=== PATIENT | female | born 1995 | race Caucasian/White ===

== ENCOUNTER 2016-12-24 08:00 | Outpatient (CLI) | payer OTHER | END 2016-12-24 08:01 | disposition home or self-care (01) | DX: N92.6 Irregular menstruation, unspecified (principal) ==

== ENCOUNTER 2017-01-20 16:28 | Outpatient (CLI) | payer OTHER | END 2017-01-20 16:29 | disposition home or self-care (01) | DX: Z36 Encounter for antenatal screening of mother (principal) ==

== ENCOUNTER 2017-01-21 16:52 | Outpatient (CLI) | payer OTHER | END 2017-01-21 16:53 | disposition home or self-care (01) | DX: Z11.3 Encounter for screening for infections with a predominantly sexual mode of transmission (principal) ==

== ENCOUNTER 2017-01-24 07:22 | Outpatient (CLI) | payer OTHER | END 2017-01-24 07:23 | disposition home or self-care (01) | DX: Z36 Encounter for antenatal screening of mother (principal); O02.1 Missed abortion ==

== ENCOUNTER 2017-02-10 19:19 | Emergency (ER) | payer OTHER ==
[2017-02-10] MEDS ORDERED: HYDROcod/ACETAM 5/325 MG TABLET PO STA (20:27)
[2017-02-10] MEDS ORDERED: HYDROcod/ACETAM 5/325 MG TABLET ONE (20:35)
[2017-02-10] MEDS ORDERED: HYDROcod/ACET 5/325 Prepack 6 PO STA (23:30)
[2017-02-10] MEDS ORDERED: HYDROcod/ACET 5/325 Prepack 6 PO ONE (23:34)
== END 2017-02-10 23:48 | disposition home or self-care (01) ==
DX: O02.1 Missed abortion (principal)
CPT/HCPCS: 36415; 76830; 76856; 80053; 81001; 83690; 84702; 85025; 99283; A9270

== ENCOUNTER 2017-02-11 15:00 | Day surgery (SDC) | payer OTHER ==
[2017-02-11] MEDS ORDERED: SODIUM CHLORIDE 0.9% 1,000 ML IV ONE ×2 (15:32→16:13)
[2017-02-11] MEDS ORDERED: MORPHINE 2 MG/ML SYRINGE IVP STA ×2 (15:32→17:22)
[2017-02-11] MEDS ORDERED: MORPHINE 2 MG/ML SYRINGE ONE ×2 (16:11→17:24)
[2017-02-11] MEDS ORDERED: SODIUM CHLORIDE 0.9% 500 ML IV ONE (17:44)
[2017-02-11] MEDS ORDERED: LACTATED RINGERS 1,000 ML IV ONE (18:19)
[2017-02-11] MEDS ORDERED: PROPOFOL 200 MG/20 ML VIAL IVP ONE (18:42)
[2017-02-11] MEDS ORDERED: METOCLOPRAMIDE 10 MG/2 ML VIAL IVP ONE (18:42)
[2017-02-11] MEDS ORDERED: DEXAMETHASONE 4 MG/ML VIAL IVP ONE (18:42)
[2017-02-11] MEDS ORDERED: PHENYLEPHRINE 10 MG/ML VIAL IV ONE (18:42)
[2017-02-11] MEDS ORDERED: CARBOPROST TROMETHAMINE 250 MCG/ML AMP IM ONE (18:42)
[2017-02-11] MEDS ORDERED: LIDOCAINE-MPF 2% 5 ML VIAL IM ONE (18:42)
[2017-02-11] MEDS ORDERED: MIDAZOLAM 2 MG/2 ML VIAL IVP ONE (18:42)
[2017-02-11] MEDS ORDERED: KETOROLAC 30 MG/ML VIAL IVP ONE (18:42)
[2017-02-11] MEDS ORDERED: ceFAZolin 1 GM VIAL IV ONE (18:42)
[2017-02-11] MEDS ORDERED: fentaNYL 100 MCG/2 ML VIAL IVP ONE (18:42)
[2017-02-11] MEDS ORDERED: ACETAMINOPHEN 325 MG TABLET PO ONE (19:44)
[2017-02-11] MEDS ORDERED: ACETAMINOPHEN 1,000 MG/100 ML 100 ML IV ONE (19:45)
== END 2017-02-11 17:07 | disposition home or self-care (01) ==
PROC: 10D17ZZ Extraction of Products of Conception, Retained, Via Natural or Artificial Opening (ICD-10-PCS; principal; 2017-02-11 17:00)
DX: O02.1 Missed abortion (principal); E66.9 Obesity, unspecified; Z68.36 Body mass index [BMI] 36.0-36.9, adult
CPT/HCPCS: 36415; 59820; 85025; 86850; 86900; 86901; 88305; 96361; 96374; 96376; 99283; 99284; A9270; J0131; J7120

== ENCOUNTER 2017-04-20 22:51 | Emergency (ER) | payer OTHER ==
[2017-04-20 22:59] VITALS: BP 142/82
--- NOTE | 2017-04-20 23:53 | XRAY Preliminary Report ---
Exam: XR Ankle 3 View RT IMPRESSION: No evidence of fracture or dislocation. [facility] SITE ID: [id number]
--- NOTE | 2017-04-20 23:56 | XRAY Report ---
EXAM: RIGHT ANKLE RADIOGRAPHY EXAM DATE: 04/20/2017 11:29 PM. CLINICAL HISTORY: Injury/fell in [place] dog [place] tonight. COMPARISON: None. TECHNIQUE: 3 views. FINDINGS: Bones: No fracture or focal bony lesion. Joints: No evidence of dislocation. Soft Tissues: There is lateral ankle soft tissue swelling. IMPRESSION: No evidence of fracture or dislocation. [facility] Referring Provider Line: [phone] SITE ID: [id number]
--- NOTE | 2017-04-21 00:05 | ED Physician Documentation ---
PD HPI LOWER EXT INJURY - Stated complaint Stated Complaint: R ANKLE INJURY - Chief complaint Chief Complaint: Ext Problem - History obtained from History obtained from: Patient, Family - History of Present Illness PD HPI LOW EXT INJURY LOCATION: Right, Ankle Type of injury: Twist Where injury occurred: Home Timing - onset: How many hours ago (1) Timing - details: Abrupt onset Improved by: Rest, Ice, Immobilization Worsened by: Moving, Palpating Similar symptoms before: Has not had sx before Recently seen: Not recently seen - Additional information Additional information: Patient is a 21 year old female with no significant past medical history who is presenting to the emergency department for right ankle pain. patient states that she was at the [employer] and stepped in a hole twisting her right ankle. patient denies any other trauma at this time. Review of Systems Constitutional: denies: Fever, Chills Eyes: denies: Loss of vision Ears: denies: Ear pain, Drainage/discharge Nose: denies: Epistaxis Throat: denies: Dental pain / toothache Cardiac: denies: Chest pain / pressure, Palpitations Respiratory: denies: Cough GI: denies: Nausea, Vomiting Skin: denies: Rash, Lesions, Abrasion (s) Musculoskeletal: reports: Extremity pain, Joint pain, Extremity swelling, Joint swelling. 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: Miscarriage(s) - Past Surgical History Past Surgical History: No - Present Medications Home Medications: Ambulatory Orders Medication Instructions Recorded Confirmed Ibuprofen 800 mg PO TID PRN 04/20/17 04/20/17 - Allergies Allergies/Adverse Reactions: Allergies Allergy/AdvReac Type Severity Reaction Status Date / Time No Known Drug Allergies Allergy Verified 04/20/17 22:59 - Social History Does the pt smoke?: No Smoking Status: Never smoker Does the pt drink ETOH?: No Does the pt have substance abuse?: No - Immunizations Immunizations are current?: Yes - POLST Patient has POLST: No PD ED PE NORMAL - Vitals Vital signs reviewed: Yes - General General: Alert and oriented X 3, Well developed/nourished - HEENT HEENT: Atraumatic, PERRL - Neck Neck: No bony TTP - Cardiac Cardiac: RRR, No murmur - Respiratory Respiratory: No respiratory distress - Abdomen Abdomen: Non distended - Derm Derm: Normal color, Warm and dry, No rash - Neuro Neuro: Alert and oriented X 3, No motor deficit, No sensory deficit, Normal speech - Psych Psych: Normal mood, Normal affect PD ED PE EXPANDED - Extremities Extremities: Right ankle (tenderness and swelling of right ankle, distal pulses intact), Right foot (no bony deformity, no point tenderness) Results - Vitals Vitals: Vital Signs - 24 hr 04/20/17 22:58 Temperature 36.6 C Heart Rate 101 H Respiratory 18 Rate Blood Pressure 142/82 H O2 Saturation 97 Oxygen O2 Source Room air - Rads (name of study) right ankle Radiology: Final report received (no acute fracture or dislocation) PD MEDICAL DECISION MAKING - ED course Complexity details: reviewed results, re-evaluated patient, considered differential, d/w patient ED course: Patient was seen and examined at bedside. Patient stated she was not . patient was sent for imaging. when patient returned the results were reviewed. there was no acute fracture or dislocation. Patient was placed in a splint and given crutches. patient required no further work up at this time and was stable for discharge with outpatient follow up. Departure - Departure Disposition: 01 Home, Self Care Clinical Impression: Right ankle pain Condition: Good Instructions: ED RICE Follow-Up: primary,care provider [Other] Comments: your symptoms today are being caused by an ankle sprain. there is no acute fracture or dislocation. You should continue with motrin 600mg or tylenol 1gm as needed for pain. You should elevate your ankle and continue to ice at least 6 times a day. You should follow up with your pmd if your symptoms persist for more than 10 days. You may return to the emergency department at any time if necessary for new, worsening or uncontrollable symptoms.
== END 2017-04-21 00:15 | disposition home or self-care (01) ==
LOC: ED 22:51
DX: M25.571 Pain in right ankle and joints of right foot (principal); X50.0XXA Overexertion from strenuous movement or load, initial encounter; Y92.019 Unspecified place in single-family (private) house as the place of occurrence of the external cause
CPT/HCPCS: 99283; 99284

== ENCOUNTER 2018-01-18 11:11 | Emergency (ER) | payer OTHER ==
[2018-01-18] MEDS ORDERED: ELECTROLYTE-A SOLUTION 1,000 ML IV ONE (11:30)
[2018-01-18] MEDS ORDERED: ONDANSETRON ODT 4 MG TABLET TL STA (11:52)
[2018-01-18] MEDS ORDERED: IBUPROFEN 800 MG TABLET PO STA (11:53)
[2018-01-18] MEDS ORDERED: diphenhydrAMINE 25 MG CAPSULE PO STA (11:53)
[2018-01-18 12:19] LABS: BASOPHILS % (AUTO) 0.6 %; EOSINOPHILS % (AUTO) 0.3 %; HGB - HEMOGLOBIN 13.3 g/dL (12.0-16.0); LYMPHOCYTES # (AUTO) 0.5 10^3/uL (1.5-3.5); LYMPHOCYTES % (AUTO) 7.7 %; MEAN CORPUSCULAR HGB CONC 34.1 g/dL (32.0-36.0); MEAN CORPUSCULAR VOLUME 82.1 fL (81.0-99.0); MEAN PLATELET VOLUME 7.7 fL (7.9-10.8); MONOCYTES # (AUTO) 0.7 10^3/uL (0.0-1.0); MONOCYTES % (AUTO) 10.1 %; NEUTROPHILS # (AUTO) 5.7 10^3/uL (1.5-6.6); NEUTROPHILS % (AUTO) 81.3 %; PLT - PLATELET COUNT 232 10^3/uL (130-450); RED BLOOD COUNT 4.74 10^6/uL (4.20-5.40); WHITE BLOOD COUNT 7.1 x10^3/uL (4.8-10.8)
[2018-01-18 12:28] LABS: ALBUMIN 4.5 g/dL (3.2-5.5); ALBUMIN/GLOBULIN RATIO 1.5 (1.0-2.2); BILIRUBIN,TOTAL 0.2 mg/dL (0.2-1.0); CREATININE 0.8 mg/dL (0.4-1.0); TOTAL PROTEIN 7.5 g/dL (6.7-8.2)
[2018-01-18] MEDS ORDERED: PROMETHAZINE 25 MG/1 ML VIAL IM STA (13:23)
[2018-01-18 13:27] LABS: BILIRUBIN,URINE NEGATIVE (NEGATIVE); GLUCOSE, URINE (UA) NEGATIVE (NEGATIVE); KETONES,URINE (UA) NEGATIVE (NEGATIVE); LEUKOCYTE ESTERASE, URINE NEGATIVE (NEGATIVE); NITRITE,URINE NEGATIVE (NEGATIVE); OCCULT BLOOD,URINE SMALL (NEGATIVE); PROTEIN,URINE NEGATIVE (NEGATIVE); UROBILINOGEN,URINE 0.2 (NORMAL) E.U./dL (NORMAL)
[2018-01-18 13:31] LABS: CLARITY,URINE CLEAR (CLEAR); HCG UR QUAL NEGATIVE
[2018-01-18 13:47] LABS: RBC,URINE 0-5 /HPF (0-5); SQUAMOUS EPITHELIAL CELL,UR MANY Squamous (<= Few)
[2018-01-18 13:48] LABS: BACTERIA,URINE Rare /HPF (None Seen); EPITHELIAL CELLS,UR See Comments Below /HPF (<= Few)
--- NOTE | 2018-01-18 14:22 | ED Physician Documentation ---
History of Present Illness - Stated complaint Stated Complaint: DIZZY - Chief complaint Chief Complaint: General - History obtained from History obtained from: Patient, Family - History of Present Illness Timing: Yesterday Pain level max: 7 Pain level now: 6 Quality: aching, dull Improved by: rest Worsened by: standing up - Additonal information Additional information: HULL, nausea, vomiting since yesterday. Mild cough. feels lightheaded occasionally. 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) - Past Surgical History Past Surgical History: No Cardiovascular: Other - Present Medications Home Medications: Ambulatory Orders Medication Instructions Recorded Confirmed Promethazine [Phenergan] 25 mg PO Q6H PRN #10 tab 01/18/18 - Allergies Allergies/Adverse Reactions: Allergies Allergy/AdvReac Type Severity Reaction Status Date / Time No Known Drug Allergies Allergy Verified 01/18/18 11:15 - Social History Does the pt smoke?: No Smoking Status: Never smoker Does the pt drink ETOH?: No Does the pt have substance abuse?: No - Immunizations Immunizations are current?: Yes - POLST Patient has POLST: No PD ED PE NORMAL - Vitals Vital signs reviewed: Yes - General General: Alert and oriented X 3, No acute distress, Well developed/nourished - HEENT HEENT: PERRL, Ears normal, Pharynx benign, Other (Dry lips) - Neck Neck: Supple, no meningeal sign - Cardiac Cardiac: RRR, Strong equal pulses - Respiratory Respiratory: No respiratory distress, Clear bilaterally - Abdomen Abdomen: Soft, Non tender, Non distended - Back Back: No CVA TTP, No spinal TTP - Derm Derm: Warm and dry, No rash - Extremities Extremities: No edema - Neuro Neuro: Alert and oriented X 3, systems architecture analyst 2-12 intact Eye Opening: Spontaneous Motor: Obeys Commands Verbal: Oriented GCS Score: 15 - Psych Psych: Normal mood, Normal affect Results - Vitals Vitals: Vital Signs - 24 hr 01/18/18 01/18/18 01/18/18 11:13 11:19 14:38 Temperature 37.6 C H 36.6 C 36.8 C Heart Rate 118 H 125 H 96 Respiratory 16 20 18 Rate Blood Pressure 118/81 H 129/75 106/64 O2 Saturation 98 100 100 Oxygen O2 Source Room air - Labs Labs: Laboratory Tests 01/18/18 01/18/18 01/18/18 12:12 12:12 13:17 WBC 7.1 RBC 4.74 Hgb 13.3 Hct 38.9 MCV 82.1 MCH 28.0 MCHC 34.1 RDW 13.0 Plt Count 232 MPV 7.7 L Neut # 5.7 Lymph # 0.5 L [place] # 0.7 Eos # 0.0 Baso # 0.0 Absolute Nucleated RBC 0.00 Nucleated RBC % 0.0 Sodium 137 Potassium 3.6 Chloride 105 Carbon Dioxide 23 Anion Gap 9.0 BUN 14 Creatinine 0.8 Estimated GFR (MDRD) 91 Glucose 95 Calcium 9.0 Total Bilirubin 0.2 AST 18 ALT 16 Alkaline Phosphatase 80 Total Protein 7.5 Albumin 4.5 Globulin 3.0 Albumin/Globulin Ratio 1.5 Lipase 15 L Urine Color YELLOW Urine Clarity CLEAR Urine pH 6.0 Ur Specific [place] 1.015 Urine Protein NEGATIVE Urine Glucose (UA) NEGATIVE Urine Ketones NEGATIVE Urine Occult Blood SMALL H Urine Nitrite NEGATIVE Urine Bilirubin NEGATIVE Urine Urobilinogen 0.2 (NORMAL) Ur Leukocyte Esterase NEGATIVE Urine RBC 0-5 Urine WBC >25 H Ur Epithelial Cells See Comments Below Ur Squamous Epith Cells MANY Squamous H Urine Bacteria Rare Ur Microscopic Review INDICATED Urine Culture Comments NOT INDICATED Urine HCG, Qual NEGATIVE PD MEDICAL DECISION MAKING - ED course Complexity details: reviewed results, re-evaluated patient, considered differential, d/w patient, d/w family ED course: Patient is a 22-year-old female who presents to the emergency department with what appears to be a worsening of her usual headache. She has also had nausea and vomiting with this. Zofran did not seem to help much, but Phenergan relieved her symptoms. She was a difficult IV stick and requested not to have an IV inserted. Therefore IM medications were used and she was able to tolerate p.o. Headache resolved. Lightheadedness and dizziness resolved. We will continue supportive care and follow-up with her doctor. Patient counseled regarding signs and symptoms for which I believe and urgent re-evaluation would be necessary. Patient with good understanding of and agreement to plan and is comfortable going home at this time This document was made in part using voice recognition software. While efforts are made to proofread this document, sound alike and grammatical errors may occur. Departure - Departure Disposition: 01 Home, Self Care Clinical Impression: Headache Qualifiers: Headache type: unspecified Headache chronicity pattern: acute headache Intractability: not intractable Qualified Code(s): R51 - Headache Vomiting Qualifiers: Vomiting type: unspecified Vomiting Intractability: non-intractable Nausea presence: with nausea Qualified Code(s): R11.2 - Nausea with vomiting, unspecified Condition: Good Instructions: ED Headache Migraine, ED Nausea Vomiting Follow-Up: your,doctor in 1 week [Other] Prescriptions: Promethazine [Phenergan] 25 mg PO Q6H PRN #10 tab PRN Reason: Nausea / Vomiting Comments: Do not drive or operate heavy machinery while taking Phenergan. Return if you worsen. Drink plenty of fluids and rest Discharge Date/Time: 01/18/18 14:39
[2018-01-18 14:39] VITALS: BP 106/64
== END 2018-01-18 14:39 | disposition home or self-care (01) ==
LOC: ED 11:11
DX: R51 Headache (principal); R11.2 Nausea with vomiting, unspecified
CPT/HCPCS: 36415; 80053; 81001; 81025; 83690; 85025; 96372; 99283; 99284; A9270; Q0162; 81003; 87086

== ENCOUNTER 2018-04-26 08:00 | Outpatient (CLI) | payer OTHER | END 2018-04-26 08:01 | disposition home or self-care (01) | LOC: LAB.R 08:00 | PROVIDERS: ATTEND Registered Nurse | DX: R10.2 Pelvic and perineal pain (principal) | CPT/HCPCS: 36415; 84702; 87491; 87591 ==

== ENCOUNTER 2018-04-26 14:45 | Outpatient (CLI) | payer OTHER | END 2018-04-26 14:46 | disposition home or self-care (01) | LOC: LAB 14:45 | PROVIDERS: ATTEND Registered Nurse | DX: R10.2 Pelvic and perineal pain (principal) | CPT/HCPCS: 36415; 84702 ==

== ENCOUNTER 2019-10-09 11:16 | Outpatient (CLI) | payer OTHER | END 2019-10-09 11:17 | disposition home or self-care (01) | LOC: DI 11:16 | PROVIDERS: ATTEND Obstetrics & Gynecology | DX: Z86.79 Personal history of other diseases of the circulatory system (principal) | CPT/HCPCS: 93306 ==

== ENCOUNTER 2019-10-14 07:30 | Outpatient (CLI) | payer OTHER ==
[2019-10-14 07:55] LABS: BASOPHILS % (AUTO) 0.2 %; EOSINOPHILS % (AUTO) 0.5 %; HGB - HEMOGLOBIN 11.3 g/dL (12.0-16.0); LYMPHOCYTES # (AUTO) 1.8 10^3/uL (1.5-3.5); LYMPHOCYTES % (AUTO) 19.8 %; MEAN CORPUSCULAR HEMOGLOBIN 25.7 pg (27.0-31.0); MEAN CORPUSCULAR HGB CONC 31.7 g/dL (32.0-36.0); MEAN CORPUSCULAR VOLUME 80.9 fL (81.0-99.0); MEAN PLATELET VOLUME 10.3 fL (7.9-10.8); MONOCYTES # (AUTO) 0.7 10^3/uL (0.0-1.0); MONOCYTES % (AUTO) 7.4 %; NEUTROPHILS # (AUTO) 6.4 10^3/uL (1.5-6.6); NEUTROPHILS % (AUTO) 71.5 %; PLT - PLATELET COUNT 198 10^3/uL (130-450); RED CELL DISTRIBUTION WIDTH 15.6 % (12.0-15.0); WHITE BLOOD COUNT 8.9 x10^3/uL (4.8-10.8)
== END 2019-10-14 07:31 | disposition home or self-care (01) ==
LOC: LAB 07:30
PROVIDERS: ATTEND Nurse Practitioner Family
DX: Z01.818 Encounter for other preprocedural examination (principal); Z3A.00 Weeks of gestation of pregnancy not specified; O32.1XX0 Maternal care for breech presentation, not applicable or unspecified; O24.319 Unspecified pre-existing diabetes mellitus in pregnancy, unspecified trimester
CPT/HCPCS: 36415; 85025; 86850; 86900; 86901

== ENCOUNTER 2019-10-16 06:53 | Inpatient (IN) | payer OTHER ==
[~2019-10-16 06:53] MED LIST: LACTATED RINGERS 1,000 ML IV ONE; LACTATED RINGERS 1,000 ML IV SCH; SODIUM CHLORIDE FLUSH 0.9% 10 ML SYRINGE IVP PRN; SODIUM CHLORIDE FLUSH 0.9% 10 ML SYRINGE ONE
[2019-10-16] MEDS ORDERED: ceFAZolin 2 GM in SODIUM CHLORIDE 0.9% 100ML 100 ML IV ONE (07:30)
[2019-10-16 07:31] VITALS: BP 126/87
--- NOTE | 2019-10-16 08:17 | PROVIDER PROGRESS NOTE ---
- HPI Chief Complaint: Other Current : Current EDU 10/20/19 Gestation 39 Weeks and 3 Days 6 Para 0 Vital Signs Temperature 37.2 C 10/16/19 07:30 Heart Rate 120 H 10/16/19 07:30 Respiratory Rate 18 10/16/19 07:30 Blood Pressure 126/87 H 10/16/19 07:30 O2 Saturation 99 10/16/19 07:30 Temperature 37.2 C 10/16/19 07:30 Heart Rate 120 H 10/16/19 07:30 Respiratory Rate 18 10/16/19 07:30 Blood Pressure 126/87 H 10/16/19 07:30 O2 Saturation 99 10/16/19 07:30 - Exam VS wnl Gen: alert, NAD abdo: soft, nontender Uterus: gravid, nontender Supervisor Agency Appointments: normal external female genitalia SVE: Cervix 1/thick/high/posterior/medium. Standby: EILEEN Manzo - Procedures OB Procedure Performed: NST Diagnosis/Indication for NST: Polyhydramnios NST Procedure: NST Procedure Start Date 10/16/19 Start Time 07:30 Patient States Movement Yes Baseline 130, moderate variability, pos accels, no decels Service Date of procedure: 10/16/19 Procedure Details: Reactive NST - Plan Plan: 24 yo at 39+3 wga presents for planned PLTCD d/t malpresentation, but found to be vertex on arrival by TAUS. Denies ctx, VB, LOF. Reports FM. Good sugar control at home; one fasting elevation and 3 post-dinner elevations in the past week, which pt attributes to dietary lapses over the holiday. O/w excellent control. No other acute concerns. Discussed options for induction now that patient is vertex. Given A1GDM and polyhydramnios, recommend induction by due date. Scheduled [id number] at 39+6 wga. Rvwd labor precautions and reasons to seek care sooner.
== END 2019-10-16 08:15 | disposition home or self-care (01) | DRG 833 ==
LOC: FBP 06:53
PROVIDERS: ADMIT Obstetrics & Gynecology; ATTEND Obstetrics & Gynecology
DX: O40.3XX0 Polyhydramnios, third trimester, not applicable or unspecified (principal); O24.419 Gestational diabetes mellitus in pregnancy, unspecified control; Z3A.39 39 weeks gestation of pregnancy
CPT/HCPCS: 59025

== ENCOUNTER 2019-10-19 05:58 | Inpatient (IN) | payer OTHER ==
[2019-10-19] MEDS ORDERED: SODIUM CHLORIDE FLUSH 0.9% 10 ML SYRINGE IVP PRN (07:14)
--- NOTE | 2019-10-19 07:20 | HISTORY & PHYSICAL EXAMINATION ---
Admit History - Visit Reason Visit Reason: Other (planned IOL, poly, A1GDM, unstable lie) - : 6 Parity: 0050 : 5 Care: positive: Sandra Risk/History: positive: Gestational diabetes, Polyhydramnios Complications This : positive: Gestational diabetes Smoking Status: Never smoker - Mother's Labs Mother's Blood Type: positive: A Mother's RH: positive: Positive GBS: positive: Group B Step Negative Rubella Status: positive: Immune - Other Maternal History Other Maternal History: Obesity, Current BMI 43, excess weight gain of 16 kg in A1GDM Polyhydramnios, MAXIM 26 Former smoker, quit age 20 Open heart surgery as , normal echo this Hx of bowel surgery in infancy d/t NEC Unstable lie, breech as of , vtx on admission Meds/Allgy - Home Medications Home Medications: Ambulatory Orders Medication Instructions Recorded Confirmed Promethazine [Phenergan] 25 mg PO Q6H PRN #10 tab 01/18/18 - Allergies Allergies/Adverse Reactions: Allergies Allergy/AdvReac Type Severity Reaction Status Date / Time No Known Drug Allergies Allergy Verified 01/18/18 11:15 Review of Systems - Constitutional Constitutional: denies: Fatigue, Fever, Chills - Eyes Eyes: denies: Spots in vision - Cardiovascular Cariovascular: denies: Chest pain - Respiratory Respiratory: denies: SOB at rest - Gastrointestinal Gastrointestinal: denies: Abdominal pain - Genitourinary Genitourinary: denies: Dysuria - Integumentary Integumentary: denies: Rash - Psychiatric Psychiatric: denies: Depression Physical - Abdominal Exam Contraction Frequency (min/apart): none Uterine Resting Tone: positive: Soft - Monitoring Strip Review: positive: Category I - Presentation Presentation: positive: Vertex - Vaginal Exam Membranes: positive: Membranes intact Dilation (in cm): 1 Effacement (%): 0 Station: positive: -3 Cervical Position: positive: Posterior (SVE from exam on 16OCT2019) - Speculum Exam Speculum Exam Performed: positive: No Plan for Labor - Plan For Labor Plan for Labor: 24 yo admitted for IOL d/t A1GDM and polyhydramnios. BMI 42. 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 Hx of NEC as requiring surgery, no other significant surgical hx. O/w healthy. Unstable lie over past 2 weeks, vtx by u/s this AM. FHR category category I. EFW 3031g 26NOV by u/s. Vtx by TAUS this AM. Cervix 1/thick/high/posterior/medium, difficulty reaching internal os d/t pt di fficulty tolerating exam. -Admit to L&D -Consents signed/on chart -Anesthesia consult -continuous FHR monitoring -A1GDM. CBS check on admission; pt reports fasting this AM of 79. Rpt prn symptoms of hypo or hyperglycemia. -Initiate cervical ripening with misoprostol 50 mcg PO. Varela balloon when feasible. AROM and pitocin as indicated. Discussed expectations for induction course, possibility of long or failed IOL. Pt expressed understanding. -Anticipate , operative delivery for maternal- indications. -PPH risk is moderate d/t BMI >40
[2019-10-19 08:01] LABS: BASOPHILS % (AUTO) 0.4 %; EOSINOPHILS # (AUTO) 0.1 10^3/uL (0.0-0.7); EOSINOPHILS % (AUTO) 0.7 %; HGB - HEMOGLOBIN 11.1 g/dL (12.0-16.0); LYMPHOCYTES # (AUTO) 1.7 10^3/uL (1.5-3.5); LYMPHOCYTES % (AUTO) 22.1 %; MEAN CORPUSCULAR HEMOGLOBIN 24.7 pg (27.0-31.0); MEAN CORPUSCULAR HGB CONC 30.7 g/dL (32.0-36.0); MEAN CORPUSCULAR VOLUME 80.4 fL (81.0-99.0); MEAN PLATELET VOLUME 10.4 fL (7.9-10.8); MONOCYTES # (AUTO) 0.6 10^3/uL (0.0-1.0); MONOCYTES % (AUTO) 7.8 %; NEUTROPHILS # (AUTO) 5.2 10^3/uL (1.5-6.6); NEUTROPHILS % (AUTO) 68.3 %; PLT - PLATELET COUNT 187 10^3/uL (130-450); RED BLOOD COUNT 4.49 10^6/uL (4.20-5.40); RED CELL DISTRIBUTION WIDTH 15.9 % (12.0-15.0); WHITE BLOOD COUNT 7.5 x10^3/uL (4.8-10.8)
[2019-10-19] MEDS ORDERED: miSOPROStoL 100 MCG TABLET PO SCH (09:00)
[2019-10-19] MEDS ORDERED: miSOPROStoL 100 MCG TABLET VG SCH (09:00)
[2019-10-19] MEDS: miSOPROStoL 100 MCG TABLET PO SCH ×2 (13:44→18:22)
[2019-10-19] MEDS: SODIUM CHLORIDE FLUSH 0.9% 10 ML SYRINGE IVP SCH ×2 (16:20→18:13)
[2019-10-19] MEDS ORDERED: fentaNYL 100 MCG/2 ML VIAL IVP SCH (18:00)
[2019-10-19] MEDS ORDERED: fentaNYL 100 MCG/2 ML VIAL ONE (18:06)
--- NOTE | 2019-10-19 18:27 | PROVIDER PROGRESS NOTE ---
Labor Progress Note - Uterine Monitoring Contraction Frequency (min/apart): q7-10 Contraction Intensity: positive: Mild Uterine Resting Tone: positive: Soft - Monitoring Monitor Mode: positive: External ultrasound Heart Rate Baseline: 145 Heart Rate Variability: positive: Moderate (6-25 bmp) Accelerations: positive: Present, 15x15 Decelerations: positive: None Strip Review: positive: Category I - Vaginal Exam Dilation (in cm): 1 Effacement (%): 0 Station: -3 Cervical Position: Midposition - Labor Progress Note Labor Progress Note/Additional Text: Some change in cervical position, but still minimal effacement or dilation after 2 doses of misoprostol. FHR remains category I. Giang balloon placed and inf lated with 30 mL. Pt rec'd 100 mcg fentanyl IV immediately prior to giang balloon placement. Will place to tension. Rpt dose of misoprostol x 1; anticipate starting pitocin in 4 hours.
[2019-10-19] MEDS ORDERED: OXYTOCIN/DEXTROSE 5 % 30 UNIT/500 ML BAG IV SCH (22:00)
[2019-10-19] MEDS: LACTATED RINGERS 1,000 ML IV SCH (22:31)
--- NOTE | 2019-10-20 06:23 | PROVIDER PROGRESS NOTE ---
Labor Progress Note - Uterine Monitoring Contraction Frequency (min/apart): q2-4min Contraction Intensity: positive: Moderate Uterine Resting Tone: positive: Soft - Monitoring Monitor Mode: positive: External ultrasound Heart Rate Baseline: 140 Heart Rate Variability: positive: Moderate (6-25 bmp) Accelerations: positive: Present, 15x15 Decelerations: positive: None Strip Review: positive: Category I - Vaginal Exam Dilation (in cm): 2 Effacement (%): 50 Station: -3 Cervical Position: Midposition (Slight labor progress, remains too high for safe AROM and pt very uncomfortable with exam, has difficulty tolerating. Will plan epidural prior to next check. Continue pitocin. SVE in 4h, or prn maternal- indications.)
[2019-10-20] MEDS ORDERED: ROPIVACAINE 0.2% 200 MG/100 ML BAG EP ONE (06:46)
--- NOTE | 2019-10-20 06:54 | ANESTHESIA ---
Pre-Anesthesia VS, & Labs - Diagnosis active labor - Procedure vaginal delivery Vital Signs: Temp Pulse Resp BP Pulse Ox 37.0 C 93 20 110/71 100 10/19/19 12:32 10/19/19 12:32 10/19/19 12:32 10/19/19 12:32 10/19/19 12:32 Height 5 ft 1 in Weight (kg) 105.233 kg Body Mass Index 37.8 - NPO Other (not npo, in labor) - Is Patient ?: Yes - Lab Results Current Lab Results: Laboratory Tests 10/19/19 07:41: Glucose 121 H 10/19/19 07:41: Blood Type A POSITIVE, Antibody Screen NEGATIVE 10/19/19 07:41: WBC 7.5, RBC 4.49, Hgb 11.1 L, Hct 36.1 L, MCV 80.4 L, MCH 24.7 L, MCHC 30.7 L, RDW 15.9 H, Plt Count 187, MPV 10.4, Neut # (Auto) 5.2, Lymph # (Auto) 1.7, [place] # (Auto) 0.6, Eos # (Auto) 0.1, Baso # (Auto) 0.0, Absolute Nucleated RBC 0.00, Nucleated RBC % 0.0 Fish Bones: 10/19/19 07:41 10/19/19 07:41 Home Medications and Allergies Active Medications Lactated Ringer's (Lr) 1,000 mls @ 100 mls/hr IV .Q10H [facility] Last Admin: 10/19/19 22:31 Dose: 100 mls/hr OXYTOCIN/DEXTROSE 5 % (Pitocin/Dextrose 5%) 30 unit in 500 mls @ 1 mls/hr IV TITR [facility]; Protocol Last Admin: 10/19/19 22:27 Dose: 1 milliunit/min, 1 mls/hr Misoprostol (Cytotec) 50 mcg PO Q4H [facility] Last Admin: 10/19/19 18:22 Dose: 50 mcg Sodium Chloride (Normal Saline Flush 0.9%) 10 ml IVP 0100,0900,1700 ELLIOTT Last Admin: 10/19/19 18:13 Dose: 10 ml Sodium Chloride (Normal Saline Flush 0.9%) 10 ml IVP PRN PRN PRN Reason: NEEDED PER PROVIDER ORDERS Allergies/Adverse Reactions: Allergies Allergy/AdvReac Type Severity Reaction Status Date / Time No Known Drug Allergies Allergy Verified 01/18/18 11:15 Anes History & Medical History - Anesthetic History Anesthesia Complications: reports: No previous complications Family history of Anesthesia Complications: Denies Family history of Malignant Hyperthermia: Denies - Medical History Cardiovascular: reports: Other (history of CHD) Pulmonary: reports: None Gastrointestinal: reports: GERD (during ), Hepatitis (history Hep C), Other (BMI 43, History of NEC as an . s/p bowel resection) Urinary: reports: None Neuro: reports: Other (sciatica) Musculoskeletal: reports: None Endocrine/Autoimmune: reports: Other (gestational diabetes) Blood Disorders: reports: None Smoking Status: Former smoker (quit at age19) Psychosocial: reports: Anxiety - Surgical History General: Bowel surgery Cardiothoracic: Other ( congenital heart disease, required surgery. Pt unsure of what kind of defect) - Obstetrical History : 6 Parity: 0 Events: positive: Gestational diabetes, Polyhydramnios Complications: positive: Gestational diabetes Results - Echo Results Echo Results: Other (Patient reports she had a recent echo that was normal) Exam General: Alert, Oriented x3, Cooperative, No acute distress Dental: WNL Mouth Openin Fingerbreadth Neck Mobility: Normal Mallampati classification: II Thyromental Distance: greater than 6 cm Mental/Cognitive Status: Alert/Oriented X3, Normal for patient Plan Anesthesia Type: Epidural Consent for Procedure(s) Verified and Reviewed: Yes Code Status: Attempt Resuscitation ASA classification: 2-Mild systemic disease Is this case an emergency?: No
[2019-10-20] MEDS ORDERED: LACTATED RINGERS 500 ML IV ONE (07:07)
[2019-10-20] MEDS ORDERED: NALBUPHINE 10 MG/ML AMP IVP PRN (07:07)
[2019-10-20] MEDS ORDERED: ROPIVACAINE 0.2% 200 MG/100 ML BAG EP PRN (07:07)
[2019-10-20] MEDS ORDERED: ONDANSETRON 4 MG/2 ML VIAL IVP PRN (07:07)
[2019-10-20] MEDS ORDERED: NALOXONE 0.4 MG/ML VIAL IVP PRN (07:07)
[2019-10-20] MEDS ORDERED: ePHEDrine 50 MG/ML VIAL IVP PRN (07:07)
[2019-10-20] MEDS: LACTATED RINGERS 1,000 ML IV SCH ×2 (08:23→16:21)
--- NOTE | 2019-10-20 10:08 | PROVIDER PROGRESS NOTE ---
Labor Progress Note - Uterine Monitoring Contraction Frequency (min/apart): q5min Contraction Intensity: positive: Moderate Uterine Resting Tone: positive: Soft - Monitoring Monitor Mode: positive: External ultrasound Heart Rate Baseline: 150 Heart Rate Variability: positive: Moderate (6-25 bmp) Accelerations: positive: Present, 15x15 Decelerations: positive: Late, Intermittent (<50% x20 min) Strip Review: positive: Category I, Category II (Intermittent late decels, quickly resolving. Overall moderate variability and spontaneous accels, safe to continue labor) - Vaginal Exam Dilation (in cm): 4 Effacement (%): 50 Station: -3 Cervical Position: Midposition - Labor Progress Note Labor Progress Note/Additional Text: Pt comfortable with epidural. Cervix 4/50/-3 with taut bag and palpable head; AROM with return of copious clear fluid and some bloody show. Halved pitocin with AROM (13-->7); will continue to increase as needed to maintain contraction pattern. FHR cat II for intermittent late decels but overall reassuring, appropriate for continued labor with moderate variability and spontaneous accels. Rpt SVE in 4h, sooner prn maternal- indications.
--- NOTE | 2019-10-20 13:32 | PROVIDER PROGRESS NOTE ---
Labor Progress Note - Uterine Monitoring Contraction Frequency (min/apart): a7min Contraction Intensity: positive: Moderate Uterine Resting Tone: positive: Soft - Monitoring Monitor Mode: positive: External ultrasound Heart Rate Baseline: 140 Heart Rate Variability: positive: Moderate (6-25 bmp) Accelerations: positive: Present, 15x15 Decelerations: positive: Prolonged (>2x10 min) Strip Review: positive: Category II - Vaginal Exam Dilation (in cm): 4 Effacement (%): 50 Station: -3 Cervical Position: Midposition - Labor Progress Note Labor Progress Note/Additional Text: Early check for prolonged decel to 90s, recovered with position change, pitocin off. No change in cervix. Continue oxygen, will leave pit off for 30 minutes of reassuring tracing. Discussed with pt concerns for possible intolerance of labor, if unable to resume pitocin d/t persistently nonreassuring tracing or if second prolonged decel would recommend . Pt expressed understanding.
[2019-10-20] MEDS ORDERED: MIDAZOLAM 2 MG/2 ML VIAL IVP ONE (15:51)
[2019-10-20] MEDS ORDERED: fentaNYL 100 MCG/2 ML VIAL IVP ONE (15:51)
[2019-10-20] MEDS ORDERED: ETOMIDATE 20 MG/10ML VIAL IV ONE (15:51)
[2019-10-20] MEDS ORDERED: LIDOCAINE 2% 10 ML MDV SUBQ ONE (15:51)
[2019-10-20] MEDS ORDERED: MORPHINE PF 5 MG/10 ML AMP EP ONE (15:59)
[2019-10-20] MEDS ORDERED: PROPOFOL 200 MG/20 ML VIAL IVP ONE (15:59)
[2019-10-20] MEDS ORDERED: raNITIdine INJ 25 MG/ML VIAL IV ONE (15:59)
[2019-10-20] MEDS ORDERED: OXYTOCIN 10 UNIT/ML VIAL IV ONE (15:59)
[2019-10-20] MEDS ORDERED: KETAMINE 500 MG/10 ML VIAL IVP ONE (15:59)
--- NOTE | 2019-10-20 16:10 | PROVIDER PROGRESS NOTE ---
Labor Progress Note - Uterine Monitoring Contraction Frequency (min/apart): 5-8 Contraction Intensity: positive: Moderate Uterine Resting Tone: positive: Soft - Monitoring Monitor Mode: positive: External ultrasound Heart Rate Baseline: 140 Heart Rate Variability: positive: Moderate (6-25 bmp) Accelerations: positive: Present, 15x15 Decelerations: positive: Late, Recurrent (>50% x20 min) Strip Review: positive: Category II - Vaginal Exam Dilation (in cm): 4 Effacement (%): 50 Station: -3 Cervical Position: Midposition - Labor Progress Note Labor Progress Note/Additional Text: Pt complained of feeling constant pressure. SVE with no change. Recurrent late decels over past 30 minutes, no improvement with position change; will attempt IV bolus and oxygen but if no improvement in FHR would stop pitocin and consider for intolerance of labor remote from delivery.
[2019-10-20] MEDS ORDERED: LIDOCAINE-PF 2% 10 ML AMP SUBQ ONE (18:47)
--- NOTE | 2019-10-20 18:48 | PROVIDER PROGRESS NOTE ---
Labor Progress Note - Uterine Monitoring Contraction Frequency (min/apart): q5-7 Contraction Intensity: positive: Moderate Uterine Resting Tone: positive: Soft - Monitoring Monitor Mode: positive: External ultrasound Heart Rate Baseline: 150 Heart Rate Variability: positive: Moderate (6-25 bmp) Accelerations: positive: Present, 15x15 Decelerations: positive: Variable, Intermittent (<50% x20 min) Strip Review: positive: Category II (Intermittent variables, self- resolved) - Vaginal Exam Dilation (in cm): 4 Effacement (%): 50 Station: -3 Cervical Position: Midposition - Labor Progress Note Labor Progress Note/Additional Text: Pt complaining of increased sensation of ctx and pain along left side; still fe eling numb on right. Reports constant sensation of pressure, but no change in cervix. FHR much improved, lates resolved; intermittent variables but overall reassuring with moderate variability and spontaneous accels. Pit at 12 and no recent increase d/t pt pain; anesthesia provider called for assistance with pain control. Will continue to titrate pitocin up as able. Rpt SVE in 4h. Discussed with pt that at 2200, would meet criteria for failed IOL (>24 hours induction, 12h ROM on pitocin) if not yet in active labor. Pt expressed understanding. Will discuss further when pt's pain under better control.
[2019-10-20] MEDS ORDERED: ceFAZolin 2 GM in SODIUM CHLORIDE 0.9% 100ML 100 ML IV ONE (20:58)
[2019-10-20] MEDS ORDERED: AZITHROMYCIN INJ 500 MG in SODIUM CHLORIDE 0.9% 250 ML IV ONE (21:00)
--- NOTE | 2019-10-20 21:05 | PROVIDER PROGRESS NOTE ---
Labor Progress Note - Uterine Monitoring Contraction Frequency (min/apart): q3-5min Contraction Intensity: positive: Moderate, Moderate to strong Uterine Resting Tone: positive: Soft - Monitoring Monitor Mode: positive: External ultrasound Heart Rate Baseline: 145 Heart Rate Variability: positive: Moderate (6-25 bmp) Accelerations: positive: Present, 15x15 Decelerations: positive: Late, Intermittent (<50% x20 min) Strip Review: positive: Category II - Vaginal Exam Dilation (in cm): 4 Effacement (%): 80 Station: -3 Cervical Position: Midposition - Labor Progress Note Labor Progress Note/Additional Text: Checked early for patient requesting primary elective due to exhaustion. Pit at 17. Some effacement but no additional dilation or descent. Discussed with patient not technically meeting criteria for failed induction of labor (would meet in 1 hour); discussed risks/benefits to proceeding with now at her request. Pt reporting increased contraction pain after initial relief from change in epidural rate; discussed with patient that we will address her pain regardless of whether or not she chooses to proceed with or continue with IOL. Pt expressed understanding, reports due to her fatigue she desires delivery now. Rvwd risks/benefits to delivery, including risks of VTE, infection, hemorrhage, injury to bowel, bladder or infant. Pt expressed understanding and signed consent. Stopped pitocin, OR team alerted. Will give Ancef 2gm and azithromycin 500 mg for SSI prophylaxis for c/s in labor, SCDs for VTE prophylaxis. FHR currently reassuring and fluid remains clear, no indication for pediatrics to be called for delivery. Anticipate delivery shortly.
[2019-10-20] MEDS ORDERED: CITRIC ACID/SODIUM CITRATE 15 ML UDC PO ONE (21:09)
[2019-10-20] MEDS ORDERED: CARBOPROST TROMETHAMINE 250 MCG/ML AMP IM ONE (21:16)
[2019-10-20] MEDS ORDERED: METHYLERGONOVINE 0.2 MG/ML AMP ONE (21:17)
[2019-10-20] MEDS ORDERED: SODIUM CHLORIDE 0.9% 500 ML IV ONE (21:30)
--- NOTE | 2019-10-20 21:31 | ANESTHESIA ---
Pre-Anesthesia VS, & Labs - Diagnosis failure to progress - Procedure C Section Vital Signs: Temp Pulse Resp BP Pulse Ox 37.0 C 93 20 110/71 100 10/19/19 12:32 10/19/19 12:32 10/19/19 12:32 10/19/19 12:32 10/19/19 12:32 Height 5 ft 1 in Weight (kg) 105.233 kg Body Mass Index 37.8 - Is Patient ?: Yes - Lab Results Current Lab Results: Laboratory Tests 10/19/19 07:41: Glucose 121 H 10/19/19 07:41: Blood Type A POSITIVE, Antibody Screen NEGATIVE 10/19/19 07:41: WBC 7.5, RBC 4.49, Hgb 11.1 L, Hct 36.1 L, MCV 80.4 L, MCH 24.7 L, MCHC 30.7 L, RDW 15.9 H, Plt Count 187, MPV 10.4, Neut # (Auto) 5.2, Lymph # (Auto) 1.7, [place] # (Auto) 0.6, Eos # (Auto) 0.1, Baso # (Auto) 0.0, Absolute Nucleated RBC 0.00, Nucleated RBC % 0.0 Fish Bones: 10/19/19 07:41 10/19/19 07:41 Home Medications and Allergies Active Medications Ephedrine Sulfate () 5 mg IVP Q5M PRN PRN Reason: For SBP<100;give until SBP>100 Lactated Ringer's (Lr) 1,000 mls @ 100 mls/hr IV .Q10H [facility] Last Admin: 10/20/19 16:21 Dose: 100 mls/hr OXYTOCIN/DEXTROSE 5 % (Pitocin/Dextrose 5%) 30 unit in 500 mls @ 1 mls/hr IV TITR [facility]; Protocol Last Admin: 10/19/19 22:27 Dose: 1 milliunit/min, 1 mls/hr Ropivacaine (Naropin 0.2%) 200 mg in 100 mls @ 0 mls/hr EP PRN PRN; Protocol PRN Reason: PAIN Last Admin: 10/20/19 15:58 Dose: 10 mls/hr Azithromycin 500 mg/ Sodium (Chloride) 250 mls @ 250 mls/hr IV ONCE ONE Stop: 10/20/19 21:59 Misoprostol (Cytotec) 50 mcg PO Q4H [facility] Last Admin: 10/19/19 18:22 Dose: 50 mcg Nalbuphine HCl (Nubain) 2.5 - 5 mg IVP Q4H PRN PRN Reason: ITCHING Naloxone HCl (Narcan) 0.1 mg IVP Q2M PRN PRN Reason: RR<8 Ondansetron HCl (Zofran Inj) 4 mg IVP Q6HR PRN PRN Reason: Nausea / Vomiting Last Admin: 10/20/19 20:13 Dose: 4 mg Sodium Chloride (Normal Saline Flush 0.9%) 10 ml IVP 0100,0900,1700 [facility] Last Admin: 10/19/19 18:13 Dose: 10 ml Sodium Chloride (Normal Saline Flush 0.9%) 10 ml IVP PRN PRN PRN Reason: NEEDED PER PROVIDER ORDERS Allergies/Adverse Reactions: Allergies Allergy/AdvReac Type Severity Reaction Status Date / Time No Known Drug Allergies Allergy Verified 01/18/18 11:15 Anes History & Medical History - Anesthetic History Anesthesia Complications: reports: No previous complications Family history of Anesthesia Complications: Denies Family history of Malignant Hyperthermia: Denies - Medical History Cardiovascular: reports: None, Other (history of CHD) Pulmonary: reports: None Gastrointestinal: reports: GERD (during ), Hepatitis (history Hep C), Other (BMI 43, 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 Pt unsure of what kind of defect) - Obstetrical History : 6 Parity: 0 Events: positive: Gestational diabetes, Polyhydramnios Complications: positive: Gestational diabetes Exam General: Alert, Oriented x3, Cooperative, No acute distress Dental: WNL Mouth Openin Fingerbreadth Neck Mobility: Normal Mallampati classification: II Thyromental Distance: 4-6 cm Respiratory: Lungs clear, Normal breath sounds, No respiratory distress, No accessory muscle use Cardiovascular: Regular rate, Normal S1, Normal S2, No murmurs Abdomen: Normal bowel sounds, Soft, No tenderness, No hepatospenomegaly, No masses Extremities: No clubbing, No cyanosis, No edema, Normal pulses, No tenderness/swelling Neurological: Normal gait, Normal speech, Strength at 5/5 X4 ext, Normal tone, Sensation intact, Cranial nerves 3-12 NL, Reflexes 2+ Mental/Cognitive Status: Alert/Oriented X3, Normal for patient Cognitive Status: Within normal limits Plan Anesthesia Type: Epidural Consent for Procedure(s) Verified and Reviewed: Yes Code Status: Attempt Resuscitation ASA classification: 2-Mild systemic disease Is this case an emergency?: No
[2019-10-20] MEDS ORDERED: LACTATED RINGERS 300 ML IV ONE (21:59)
[2019-10-20] MEDS ORDERED: LACTATED RINGERS 1,000 ML IV ONE ×3 (22:41→23:20)
[2019-10-20] MEDS ORDERED: LIDOCAINE 1% 50 ML MDV ONE (22:47)
[2019-10-20] MEDS ORDERED: SODIUM CHLORIDE FLUSH 0.9% 10 ML SYRINGE IVP PRN (23:21)
[2019-10-20] MEDS ORDERED: ONDANSETRON ODT 4 MG TABLET TL PRN (23:21)
[2019-10-20] MEDS: KETOROLAC 30 MG/ML VIAL IVP SCH (23:25)
--- NOTE | 2019-10-20 23:27 | OPERATIVE REPORT ---
Operative Report - General Admit Date: 10/19/19 Procedure Date: 10/20/19 Planned Procedure: primary low transverse delivery Pre-Op Diagnosis: uterus at 40+0 wga, polyhydramnios, A1GDM, failure to progress Procedure Performed: primary low transverse delivery Post Op Diagnosis: delivered - Procedure Note Primary Surgeon: Benson Buenrostro Secondary Surgeon: Dr. Ray Anesthesia Provider: Maryjane Cornelius Anesthesia Technique: Epidural Pathology: none; pt elected to take placenta home, collected in patient's own cooler IV Fluids (mL): 500 Estimated Blood Loss (mL): 800 Urine Output (mL): 75 Indications: Primary at maternal request in setting of failure to progress. Pt undergoing IOL for A1GDM and polyhydramnios, requested after >24 hours of induction and 11 hours of AROM, cervical dilation at 4 cm. Findings: Delivered viable male with forceps assist via PLTCD, APGARs 7 and 8. Double layer uterine closure. Prevena wound vac applied. Complications: none - Other Other Information/Narrative: After informed consent was assured, patient was taken to the operating room. heart tones 150s in OR immediately prior to skin preparation. Pt was sterilely prepped and draped. She received SSI prophylaxis with Ancef (2gms) and azithromycin (500 mg). Epidural anesthesia was tested and confirmed to be adequate. A surgical timeout was performed. A pfannenstiel incision was made sharply and carried down to the rectus fascia, which was scored on each side. The fascial incision was extended bilaterally with scissors, then bluntly dissected off of the underlying rectus muscles. The rectus muscles were in the midline. The peritoneum was entered sharply and the incision was extended with blunt and sharp dissection. A bladder flap was created. A low transverse incision was made on the uterus and bluntly extended in a cephalad-caudad fashion. The infant's head was grasped and flexed but difficulty was noted delivering through the incision. Bandage scissors were used to extend both the uterine incision laterally on the right and to divide the left rectus muscle. A vaccuum was applied but difficulty was found creating a seal due to fluids and a pop-off occurred. Deutsch forceps were then applied and articulated, confirming that the sagittal suture was midline and no maternal tissue was trapped in the blades. The infant's head delivered easily with forceps traction and the forceps were disarticulated. Nuchal x 2 was noted and reduced. The remainder of the body was then delivered and the infant had good cry and tone on the field, as well as a spontaneous void. The cord was milked x 3, clamped and cut, and the infant was passed off the field to the vehicle technician. The uterus was unable to be exteriorized and in situ repair was undertaken. After wiping out the uterine cavity, a running locked suture of 0 chromic was used for primary closure, followed by a vertical embricating suture of 0 vicryl. An area of oozing was noted at the right corner and this was secured with a figure of eight. Good hemostasis was achieved. The patient reported pain without stimulation and received some sedation from anesthesia. The area of dissected rectus muscle on the left was reapproximated with a figure of eight of 0 chromic. The fascia was reapproximated with a running suture of 0 vicryl. The subcutaneous space was reapproximated with a running suture of 2-0 vicryl. The skin was closed with a subcuticular suture of 4-0 monocryl. Steristrips were applied over the incision and a Prevena wound vacuum system was applied with good suction achieved. A final crede was performed with return of small clot and good uterine tone. Sponge and instrument counts were correct x 3. No complications were appreciated. The patient was returned to her labor room in stable condition.
--- NOTE | 2019-10-20 23:41 | DELIVERY NOTE ---
Delivery Note - Labor Labor: positive: Induced by oxytocin - Delivery Method Delivery Method: positive: Primary - Cervical Ripening Method Cervical Ripening Method: positive: Balloon device, Misoprostil - Presentation Presentation: positive: Vertex, APOLONIA - left occiput anterior - Nuchal Cord Nuchal Cord: positive: Present (x2), Reduced - Anesthetic Anesthetic Type: - Amniotic Fluid Description Amniotic Fluid Description: positive: Clear - Delivery Outcome Delivery Outcome: positive: Livebirth - [place]: positive: Stimulated, Warmed, [place] used sex: positive: Male - Placenta Placenta: positive: Intact, Expressed - Estimated Blood Loss Estimated Blood Loss (in cc): 800 - Post Delivery Events Post Delivery Events: positive: Unplanned ( at maternal request after >24 hours of induction and 11 hours of AROM, cervix unchanged over several checks at 4 cm. Not meeting criteria for failed induction of labor, but after counseling pt strongly desired to proceed.) - Delivery Comments (Free Text/Narrative) Delivery Comments (Free Text/Narrative): PLTCD with forceps assist. Double layer closure. APGARs 7 and 8. No complications. See operative note for full details.
[2019-10-20] MEDS ORDERED: ACETAMINOPHEN 1,000 MG/100 ML 100 ML IV ONE (23:56)
[2019-10-21] MEDS ORDERED: LACTATED RINGERS 1,000 ML IV ONE (00:23)
[2019-10-21] MEDS: LACTATED RINGERS 1,000 ML IV SCH ×2 (00:25→10:04)
[2019-10-21] MEDS: ACETAMINOPHEN 500 MG TABLET PO SCH ×3 (01:36→16:01)
[2019-10-21] MEDS: SODIUM CHLORIDE FLUSH 0.9% 10 ML SYRINGE IVP SCH ×2 (01:41→13:05)
[2019-10-21] MEDS: KETOROLAC 30 MG/ML VIAL IVP SCH ×3 (05:49→19:46)
[2019-10-21] MEDS: SIMETHICONE CHEW 80 MG TABLET PO SCH ×3 (05:49→19:46)
[2019-10-21 06:14] LABS: BASOPHILS # (AUTO) 0.1 10^3/uL (0.0-0.1); BASOPHILS % (AUTO) 0.4 %; EOSINOPHILS % (AUTO) 0.1 %; HGB - HEMOGLOBIN 10.2 g/dL (12.0-16.0); LYMPHOCYTES # (AUTO) 1.9 10^3/uL (1.5-3.5); LYMPHOCYTES % (AUTO) 14.5 %; MEAN CORPUSCULAR HEMOGLOBIN 25.2 pg (27.0-31.0); MEAN CORPUSCULAR HGB CONC 31.2 g/dL (32.0-36.0); MEAN CORPUSCULAR VOLUME 80.9 fL (81.0-99.0); MEAN PLATELET VOLUME 10.1 fL (7.9-10.8); MONOCYTES % (AUTO) 7.7 %; NEUTROPHILS # (AUTO) 10.1 10^3/uL (1.5-6.6); NEUTROPHILS % (AUTO) 76.8 %; PLT - PLATELET COUNT 159 10^3/uL (130-450); RED BLOOD COUNT 4.04 10^6/uL (4.20-5.40); RED CELL DISTRIBUTION WIDTH 15.9 % (12.0-15.0); WHITE BLOOD COUNT 13.1 x10^3/uL (4.8-10.8)
[2019-10-21] MEDS: oxyCODONE 5 MG TABLET PO PRN (08:32)
[2019-10-21] MEDS: DOCUSATE SODIUM 100 MG CAPSULE PO SCH ×2 (08:32→19:46)
--- NOTE | 2019-10-21 09:04 | PROVIDER PROGRESS NOTE ---
Subjective - Prog Note Date Prog Note Date: 10/21/19 Prog Note Time: 09:02 - Subjective Pt reports feeling: Improved Subjective: Pt doing well with no acute complaints. Reports soreness around incision, responsive to pain meds (toradol, tylenol, roxicodone). Voiding to giang. Not yet ambulating. Tolerating regular diet without n/v. without difficulty. Very light lochia. Mood is good, bonding well with infant Tomy. Plans Paragard for control. Objective - Vital Signs/Intake & Output Vital Signs: Vital Signs x48h Temp Pulse Resp BP BP Pulse Ox 10/21/19 08:00 99.1 F 101 H 16 109/61 99 10/21/19 06:30 98.6 F 93 16 104/58 L 97 10/21/19 05:15 16 10/21/19 04:30 16 10/21/19 03:00 18 10/21/19 02:59 99.1 F 112 H 18 115/71 97 10/21/19 02:00 120 H 18 119/60 98 10/21/19 01:10 121 H 16 129/74 96 Intake & Output: Intake & Output 10/18/19 10/19/19 10/20/19 10/21/19 23:59 23:59 23:59 23:59 Intake Total 0 2633.334 100 Output Total 1375 950 Balance 0 1258.334 -850 - Objective General Appearance: positive: No acute distress, Alert Abdomen: positive: Other (soft, mild appropriate giselle-incisional tenderness. Prevena wound vac in place over incision with good seal.) Skin: positive: Color nml, Warm, Dry Extremities: positive: Non-tender. negative: Calf tenderness Neurologic/Psychiatric: positive: Oriented x3 - Lab Results Fish Bones: 10/21/19 06:07 10/19/19 07:41 Other Labs: Lab Results x24hrs 10/21/19 Range/Units 06:07 WBC 13.1 H (4.8-10.8) x10^3/uL RBC 4.04 L (4.20-5.40) 10^6/uL Hgb 10.2 L (12.0-16.0) g/dL Hct 32.7 L (37.0-47.0) % MCV 80.9 L (81.0-99.0) fL MCH 25.2 L (27.0-31.0) pg MCHC 31.2 L (32.0-36.0) g/dL RDW 15.9 H (12.0-15.0) % Plt Count 159 (130-450) 10^3/uL MPV 10.1 (7.9-10.8) fL Neut # (Auto) 10.1 H (1.5-6.6) 10^3/uL Lymph # (Auto) 1.9 (1.5-3.5) 10^3/uL [place] # (Auto) 1.0 (0.0-1.0) 10^3/uL Eos # (Auto) 0.0 (0.0-0.7) 10^3/uL Baso # (Auto) 0.1 (0.0-0.1) 10^3/uL Absolute Nucleated RBC 0.00 x10^3/uL Nucleated RBC % 0.0 /100WBC Assessment/Plan - Problem List (1) care following delivery Impression: 24 yo POD#1 s/p PLTCD for failure to progress. Rh pos, Rub Imm, VZV NI. c/b A1GDM. Recovering well. VS wnl, UOP 1 ml/kg/h. Exam benign. . Plans Paragard insertion at 6 week visit. -routine postoperative care; prevena wound vac off POD#7 -transition toradol to ibuprofen after 4th dose -giang catheter out today with due to void -varicella vaccine -2h GTT at 6 week visit -Dispo: home tomorrow
[2019-10-22] MEDS: ACETAMINOPHEN 500 MG TABLET PO SCH ×3 (01:23→17:28)
[2019-10-22] MEDS: IBUPROFEN 800 MG TABLET PO SCH ×3 (06:02→21:31)
--- NOTE | 2019-10-22 07:24 | PROVIDER PROGRESS NOTE ---
Subjective - Prog Note Date Prog Note Date: 10/22/19 Prog Note Time: 07:22 - Subjective Pt reports feeling: Improved (Pt doing well with no acute complaints. Some soreness but ambulating well. Voiding spontaneously without difficulty. Passing flatus, no BM yet. Lochia is light. well, some nipple soreness. Mood is good.) Objective - Vital Signs/Intake & Output Vital Signs: Vital Signs x48h Temp Pulse Resp BP Pulse Ox 10/22/19 05:02 98.6 F 101 H 16 105/65 100 10/22/19 01:22 98.0 F 100 16 112/71 100 Intake & Output: Intake & Output 10/19/19 10/20/19 10/21/19 10/22/19 23:59 23:59 23:59 23:59 Intake Total 0 2633.334 1065 Output Total 1375 2350 Balance 0 1258.334 -1285 - Objective General Appearance: positive: No acute distress, Alert Abdomen: positive: Other (soft, nondistended, appropriate giselle-incisional tenderness. Prevena wound vac in place with good seal) Skin: positive: Color nml Neurologic/Psychiatric: positive: Oriented x3 - Lab Results Fish Bones: 10/21/19 06:07 10/19/19 07:41 Assessment/Plan - Problem List (1) care following delivery Impression: 24 yo POD#2 s/p PLTCD for failure to progress. Recovering well. VS wnl apart from very mild tachycardia to 105. Voiding normally. Exam benign. Hct 38-->32. . Plans Paragard insertion at 6 week visit. -routine postoperative care; prevena wound vac off POD#7 -varicella vaccine -2h GTT at 6 week visit -Dispo: home today
--- NOTE | 2019-10-22 07:31 | DISCHARGE SUMMARY ---
"Discharge Summary Admit Date: 10/19/19 Discharge Date: 10/23/19 Discharging Provider: Benson Buenrostro Code Status: Attempt Resuscitation Condition at Discharge: Good Discharge Disposition: 01 Home, Self Care Discharge Facility Name: [facility] - DIAGNOSES Admission Diagnoses: 1. uterus at 39+6 2. obesity BMI 44 3. A1GDM 4. Polyhydramnios Discharge Diagnoses with Status of Each Condition: Same as above, delivered - HPI History of Present Illness: 24 yo woman admitted for planned IOL d/t A1GDM and polyhydramnios at 39+6 wga. - CONSULTS | PROCEDURES Consultations: Anesthesia Procedures: 1. Induction of labor 2. External monitoring 3. Artificial rupture of membranes 4. Primary low transverse delivery 5. Epidural anesthesia - HOSPITAL COURSE Hospital Course: Induction initiated with misoprostol, giang balloon, followed by pitocin and amniotomy. Pt never progressed past 4 cm. After >24 hours of IOL and approximately 11 hours after AROM, pt requested PLTCD. After counseling on risks, benefits to proceeding with PLTCD at maternal request versus continuing IOL, pt still desired PLTCD. Uncomplicated surgery. Postoperative course uncomplicated. At the time of discharge, pt was ambulating, voiding spontaneously, and pain was well controlled with oral medications. She was discharged home with close interval follow up. - ALLERGIES Allergies/Adverse Reactions: Allergies Allergy/AdvReac Type Severity Reaction Status Date / Time No Known Drug Allergies Allergy Verified 01/18/18 11:15 - MEDICATIONS Home Medications: Ambulatory Orders Medication Instructions Recorded Confirmed Promethazine [Phenergan] 25 mg PO Q6H PRN #10 tab 01/18/18 Home Medications Other | Comments: 1. Ibuprofen 800 mg take 1 tablet by mouth every 8 hours 2. Tylenol 325 mg take 3 tablets by mouth every 6 hours 3. Roxicodone 5 mg take 1 tablet by mouth every 4 hours as needed for pain not relieved by other medications 4. Surfak 240 mg take 1 cap by mouth twice daily - PHYSICAL EXAM AT DISCHARGE General Appearance: positive: No acute distress (see progress note for full exam day of discharge) - LABS Result Diagrams: 10/21/19 06:07 10/19/19 07:41 - FOLLOW UP Follow Up: At [facility] with Dr. Buenrostro as scheduled on Tuesday 13DEC - TIME SPENT Time Spent in Discharge (Minutes): 30"
[2019-10-22] MEDS: LACTATED RINGERS 1,000 ML IV SCH (07:37)
[2019-10-22] MEDS: SODIUM CHLORIDE FLUSH 0.9% 10 ML SYRINGE IVP SCH ×2 (07:37→13:55)
[2019-10-22] MEDS: DOCUSATE SODIUM 100 MG CAPSULE PO SCH ×2 (09:29→21:31)
[2019-10-22] MEDS: SIMETHICONE CHEW 80 MG TABLET PO SCH ×3 (09:29→21:32)
[2019-10-22] MEDS: oxyCODONE 5 MG TABLET PO PRN ×2 (16:44→21:31)
[2019-10-23] MEDS: ACETAMINOPHEN 500 MG TABLET PO SCH ×2 (01:55→10:27)
[2019-10-23] MEDS: IBUPROFEN 800 MG TABLET PO SCH (05:38)
--- NOTE | 2019-10-23 07:04 | PROVIDER PROGRESS NOTE ---
Subjective - Prog Note Date Prog Note Date: 10/23/19 Prog Note Time: 07:02 - Subjective Pt reports feeling: Improved Subjective: No acute complaints. reports incisional soreness, controlled with oral medications. Lochia is light. Denies n/v, tolerating regular diet. Passing flatus. Voiding normally. Ambulating without difficulty. Single episode of lightheadedness yesterday, resolved with orange juice. without iss ue. Mood is good. Objective - Vital Signs/Intake & Output Vital Signs: Vital Signs x48h Temp Pulse Resp BP Pulse Ox 10/23/19 05:36 98.4 F 87 16 108/64 99 Intake & Output: Intake & Output 10/20/19 10/21/19 10/22/19 10/23/19 23:59 23:59 23:59 23:59 Intake Total 2633.334 1065 1999 Output Total 1375 2350 Balance 1258.334 -1285 1999 - Objective General Appearance: positive: No acute distress, Alert Abdomen: positive: Other (soft, appropriate giselle-incisional tenderness with no rebound or guarding. Prevena wound vac in place, good seal) Skin: positive: Color nml, No rash, Warm, Dry Extremities: positive: Non-tender Neurologic/Psychiatric: positive: Oriented x3 - Lab Results Fish Bones: 10/21/19 06:07 10/19/19 07:41 Assessment/Plan - Problem List (1) care following delivery Impression: 24 yo POD#3 s/p PLTCD for failure to progress. Rh pos, Rub Imm, VZV NI. c/b A1GDM. Recovering well. VS wnl. Exam benign. Hct 38-->32. . Plans Paragard insertion at 6 week visit. -routine postoperative care; prevena wound vac off POD#7 -varicella vaccine at f/u visit -2h GTT at 6 week visit -Dispo: home today once cleared by pediatrics
[2019-10-23] MEDS: SIMETHICONE CHEW 80 MG TABLET PO SCH (08:03)
[2019-10-23] MEDS: DOCUSATE SODIUM 100 MG CAPSULE PO SCH (08:03)
[2019-10-23 08:10] VITALS: BP 113/63
--- NOTE | 2019-10-23 11:09 | Labor Flowsheet ---
Labor Flowsheet Datetime Report Generated by CPN: 10/23/2019 11:09 Datetime: 10/23/2019 07:56 VITAL SIGNS NBP Sys/Peggy/Mean (mmHg): 113 : 63 : 75 Pulse: 92 Datetime: 10/22/2019 22:44 SpO2 (%): 99 Datetime: 10/20/2019 23:53 Stage of : Recovery Datetime: 10/20/2019 21:55 Communication Comments: OR staff, Dr. Buenrostro, anesthesia and nurse in room at bedside to prep pt for transfer to OR. EFM removed. Patient taken to OR via bed and spouse accompanied pt. Datetime: 10/20/2019 21:50 LaborFlag: Labor Datetime: 10/20/2019 21:44 UTERINE ACTIVITY Monitor Mode: External Contraction Comments: Difficulty tracing ctx at this time ASSESSMENT A Monitor Mode: External US FHR Baseline Rate : 130 Variability: Moderate 6-25 bpm Accelerations: 15X15 Decelerations: None Category: Category I Datetime: 10/20/2019 21:34 Antiemetics/Antacids: Bicitra 30 ml PO Datetime: 10/20/2019 21:30 Anesthesia Comments: Anesthesia at bedside Datetime: 10/20/2019 21:29 Frequency (min): 6 Duration (sec): 40 Datetime: 10/20/2019 20:59 Pattern: Normal: <= 5 Contractions in 10 Minutes Datetime: 10/20/2019 20:48 Medication Comments: Pitocin discontinued Datetime: 10/20/2019 20:46 Exam by: Dr. Buenrostro Vaginal Exam Comments: No Change Datetime: 10/20/2019 20:42 Pain Assessment Comments: Pt requesting a c/s due to maternal exhaustion and pain not controlled we ll by epidural MEDICATIONS Pitocin (milliunits): Increased to @ 17 Datetime: 10/20/2019 20:40 PAIN Pain Scale: 8 Datetime: 10/20/2019 20:25 Patient Position/Activity: Right Lateral Hygiene: Melba Care; Underpad Changed; Peripad Changed Datetime: 10/20/2019 20:22 Patient Care Comments: 850cc clear yellow urine emptied from giang Datetime: 10/20/2019 20:15 Resting Tone (Palpate): Relaxed Nausea/Vomiting: Present Datetime: 10/20/2019 20:04 Temperature (C): 36.9 Datetime: 10/20/2019 19:38 MATERNAL ASSESSMENT Level of Consciousness: Fully Conscious Datetime: 10/20/2019 19:26 Pitocin Checklist: At Least 1 Acceleration of 15 bpm x 15 Seconds in 30 Minutes or Adequate Variabi lity; No More than 1 Late Deceleration Occurred in Past 30 Minutes; No More than 2 Variable Decelerat ions > 60 Seconds in Duration and decreasing >60 bpm in 30 minutes; No More than 5 Uterine Contractio ns in 10 Minutes for any 20 Minute Interval Datetime: 10/20/2019 19:15 Quality: Mild Oxygen Method: Room Air Datetime: 10/20/2019 19:00 Pain Type: Cramping Pain Location: Left Buttock Pain Goal: 4 Pain Coping: Talking Through Contractions Datetime: 10/20/2019 18:45 FHR Baseline Changes: No Baseline Change Datetime: 10/20/2019 18:07 Pain Presence: Intermittent Datetime: 10/20/2019 17:30 Actions for Decelerations: Provider Notified; Other Datetime: 10/20/2019 17:03 Anesthesia Level Check: T10- Umbilicus Datetime: 10/20/2019 16:38 Comments: bolus completed Datetime: 10/20/2019 13:22 Provider Reviewed Strip: Yes COMMUNICATION Communication: Provider at Bedside Datetime: 10/20/2019 12:01 PATIENT CARE Oxygen Amount (LPM): 10 Datetime: 10/20/2019 11:56 Monitor Interventions for UA: [place] Adjusted Datetime: 10/20/2019 09:59 VAGINAL EXAM Dilatation (cm): 3.0 Effacement (%): 50 Station: -3 Membrane Status: Ruptured Membranes Rupture Method: Artificial Amniotic Fluid Color: Clear Amniotic Fluid Amount: Large Cervix, Position: Midposition Datetime: 10/20/2019 08:14 I/O Interventions: Giang Cath Inserted Datetime: 10/20/2019 07:21 Epidural Procedure: Test Dose Datetime: 10/20/2019 07:02 PROCEDURE TIME OUT Procedure Verify: Correct Patient Identity; Accurate Procedure Consent Form; Agreement on Procedure to be Done; Addressed Need to Administer Antibiotics or Fluids for Irrigation; Safety Precautions Ba sed on Patient History or Medication Use ANESTHESIA Anesthesia Plans: Epidural Datetime: 10/20/2019 06:15 Vaginal Bleeding: None Datetime: 10/20/2019 02:46 Pain Relief Measures: Comfort Measures Datetime: 10/20/2019 02:35 Cervix, Consistency: Soft Notification Reason: Status Update Datetime: 10/20/2019 00:12 Comfort Measures: Back Rub Given; Family Support Datetime: 10/19/2019 20:48 Membranes Ruptured Date/Time: 10/20/2019 09:59 Amniotic Fluid Odor: Normal Datetime: 10/19/2019 19:52 Headache: Denies TEACHING Instructional Method: Verbal; Patient Instructed; Family/Support Person Instructed; Verbalized Unde rstanding Plan of Care: Plan of Care Discussed Datetime: 10/19/2019 19:12 Monitor Interventions for FHR: Ultrasound Adjusted Datetime: 10/19/2019 13:50 Respirations: 17 Datetime: 10/19/2019 13:44 Cervical Ripening Agents: Cytotec @
== END 2019-10-23 11:00 | disposition home or self-care (01) | DRG 788 ==
LOC: WFO 05:58 → FBP 06:00 → WFO 07:13 → FBP 07:14
PROVIDERS: ADMIT Obstetrics & Gynecology; ATTEND Obstetrics & Gynecology
PROC: 10907ZC Drainage of Amniotic Fluid, Therapeutic from Products of Conception, Via Natural or Artificial Opening (ICD-10-PCS; 2019-10-19)
PROC: 0U7C7ZZ Dilation of Cervix, Via Natural or Artificial Opening (ICD-10-PCS; 2019-10-19)
PROC: 3E033VJ Introduction of Other Hormone into Peripheral Vein, Percutaneous Approach (ICD-10-PCS; 2019-10-19)
PROC: 10D00Z1 Extraction of Products of Conception, Low, Open Approach (ICD-10-PCS; principal; 2019-10-20 21:40)
DX: O40.3XX0 Polyhydramnios, third trimester, not applicable or unspecified (principal); Z3A.39 39 weeks gestation of pregnancy; O99.214 Obesity complicating childbirth; O24.420 Gestational diabetes mellitus in childbirth, diet controlled; O69.81X0 Labor and delivery complicated by cord around neck, without compression, not applicable or unspecified; O76 Abnormality in fetal heart rate and rhythm complicating labor and delivery; O75.81 Maternal exhaustion complicating labor and delivery; O64.8XX0 Obstructed labor due to other malposition and malpresentation, not applicable or unspecified; R00.0 Tachycardia, unspecified; R42 Dizziness and giddiness; Z37.0 Single live birth; Z87.891 Personal history of nicotine dependence; Z87.19 Personal history of other diseases of the digestive system; Z87.74 Personal history of (corrected) congenital malformations of heart and circulatory system
CPT/HCPCS: 36415; 82947; 85025; 86850; 86900; 86901

== ENCOUNTER 2019-10-26 04:30 | Emergency (ER) | payer OTHER ==
--- NOTE | 2019-10-26 04:58 | ED Physician Documentation ---
History of Present Illness - Stated complaint Stated Complaint: POST CSECT PX - Chief complaint Chief Complaint: Wound - Additonal information Additional information: This is a 24-year-old female with a history of open heart surgery as a child, recent on 10/20/[address] Buenrostro, who presents with pain around her C- section incision. Patient states that she has been overall making slow improvements in her postoperative discomfort, but this morning when she got out of bed she felt some pain around her incision site as if it had been torn open. She has a wound VAC in place which is set to be removed today. She has not had any drainage from the wound VAC or around the bandage site. She called into her doctor, who sent her to the emergency department for evaluation. Patient denies any vomiting or diarrhea. She did take a Percocet at home and her pain is subsiding now. Review of Systems Constitutional: denies: Fever Nose: denies: Rhinorrhea / runny nose Cardiac: denies: Chest pain / pressure GI: reports: Abdominal Pain. 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(s) : None Musculoskeletal: None Other Past Medical History: Open heart when young - Past Surgical History Past Surgical History: No General: Bowel surgery Cardiovascular: Other - Present Medications Home Medications: Ambulatory Orders Medication Instructions Recorded Confirmed Docusate Calcium 240 mg PO BID 10/26/19 10/26/19 Ibuprofen 1 tab PO Q8HR 10/26/19 10/26/19 oxyCODONE [Roxicodone] 5 mg PO Q6HR PRN 10/26/19 10/26/19 - Allergies Allergies/Adverse Reactions: Allergies Allergy/AdvReac Type Severity Reaction Status Date / Time No Known Drug Allergies Allergy Verified 10/26/19 04:37 - Social History Does the pt smoke?: No Smoking Status: Never smoker Does the pt drink ETOH?: No Does the pt have substance abuse?: No - Immunizations Immunizations are current?: Yes - POLST Patient has POLST: No PD ED PE NORMAL - Vitals Vital signs reviewed: Yes - General General: Alert and oriented X 3, No acute distress - HEENT HEENT: PERRL - Neck Neck: Supple, no meningeal sign - Cardiac Cardiac: RRR - Respiratory Respiratory: Clear bilaterally - Abdomen Abdomen: Other (Wound VAC in place without drainage into the appliance. The wound site appears clean. The wound VAC is removed to reveal a well approximated horizontal incisional site, with no drainage. There are Steri-Strips in place. The region is mildly tender to palpation.) - Derm Derm: Warm and dry - Extremities Extremities: No deformity - Neuro Neuro: Alert and oriented X 3 - Psych Psych: Normal mood, Normal affect Results - Vitals Vitals: Vital Signs - 24 hr 10/26/19 10/26/19 04:34 06:19 Temperature 36.8 C 36.2 C L Heart Rate 98 97 Respiratory 16 16 Rate Blood Pressure 136/91 H 138/82 H O2 Saturation 99 99 Oxygen O2 Source Room air - Labs Labs: Laboratory Tests 10/26/19 10/26/19 05:36 05:36 WBC 7.5 RBC 4.40 Hgb 11.0 L Hct 36.3 L MCV 82.5 MCH 25.0 L MCHC 30.3 L RDW 15.7 H Plt Count 256 MPV 9.6 Neut # (Auto) 4.8 Lymph # (Auto) 1.8 Lander # (Auto) 0.6 Eos # (Auto) 0.2 Baso # (Auto) 0.1 Absolute Nucleated RBC 0.00 Nucleated RBC % 0.0 Sodium 139 Potassium 3.9 Chloride 105 Carbon Dioxide 25 Anion Gap 9.0 BUN 19 Creatinine 0.7 Estimated GFR (MDRD) 104 Glucose 84 Calcium 9.1 Total Bilirubin 0.3 AST 36 ALT 78 H Alkaline Phosphatase 100 Total Protein 6.8 Albumin 3.2 Globulin 3.6 Albumin/Globulin Ratio 0.9 L Lipase 26 PD MEDICAL DECISION MAKING - ED course Complexity details: considered differential (Wound dehiscence, abdominal strain, seroma, postsurgical complication) ED course: On exam patient is well-appearing, her wound VAC is removed to reveal a very well approximated incisional site without drainage, erythema, or other signs of complication. Her wound VAC unit had no drainage in it, and her abdomen is benign. She has only mild tenderness around the incision site, as would be expected postoperatively at this time. Labs show a mild anemia, no leukocytosis. Her abdominal panel is unremarkable other than a very mildly elevated ALT which is unlikely to be related to her discomfort today as she has no upper abdominal tenderness. On repeat evaluation patient is feeling improved and her pain is mild at this time. I spoke with Dr. Buenrostro, her OB, and reviewed the case with her. She agrees that There does not seem to be an indication for imaging at the moment, and patient has follow-up with her in several hours for a wound check and reevaluation. I discussed this plan with the patient who agrees. I also discussed return precautions.He was discharged home in the care of her Departure - Departure Disposition: Home, Self Care Clinical Impression: Pain at surgical incision Condition: Good Follow-Up: HAILE BUENROSTRO MD [Provider Admit Priv/Credential] - (Follow up today as scheduled) Comments: Your site looks very good. Your labs are also reassuring. 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 If you are having significantly worsening abdominal pain, persistent vomiting, fever or other concerning symptoms return to the emergency department. You have a slightly elevated ALT (a liver enzyme), which is not related to your pain today, but please follow-up with your primary care provider on this for recheck.
[2019-10-26 05:48] LABS: BASOPHILS # (AUTO) 0.1 10^3/uL (0.0-0.1); BASOPHILS % (AUTO) 0.7 %; EOSINOPHILS # (AUTO) 0.2 10^3/uL (0.0-0.7); EOSINOPHILS % (AUTO) 2.8 %; LYMPHOCYTES # (AUTO) 1.8 10^3/uL (1.5-3.5); LYMPHOCYTES % (AUTO) 24.1 %; MEAN CORPUSCULAR HGB CONC 30.3 g/dL (32.0-36.0); MEAN CORPUSCULAR VOLUME 82.5 fL (81.0-99.0); MEAN PLATELET VOLUME 9.6 fL (7.9-10.8); MONOCYTES # (AUTO) 0.6 10^3/uL (0.0-1.0); MONOCYTES % (AUTO) 8.3 %; NEUTROPHILS # (AUTO) 4.8 10^3/uL (1.5-6.6); NEUTROPHILS % (AUTO) 63.8 %; PLT - PLATELET COUNT 256 10^3/uL (130-450); RED CELL DISTRIBUTION WIDTH 15.7 % (12.0-15.0); WHITE BLOOD COUNT 7.5 x10^3/uL (4.8-10.8)
[2019-10-26 05:57] LABS: ALBUMIN 3.2 g/dL (3.2-5.5); ALBUMIN/GLOBULIN RATIO 0.9 (1.0-2.2); BILIRUBIN,TOTAL 0.3 mg/dL (0.2-1.0); CALCIUM 9.1 mg/dL (8.5-10.3); CREATININE 0.7 mg/dL (0.4-1.0); TOTAL PROTEIN 6.8 g/dL (6.7-8.2)
[2019-10-26 06:20] VITALS: BP 138/82
== END 2019-10-26 06:20 | disposition home or self-care (01) ==
LOC: ED 04:30
DX: G89.18 Other acute postprocedural pain (principal); R74.8 Abnormal levels of other serum enzymes
CPT/HCPCS: 36415; 80053; 83690; 85025; 99283; 99284

== ENCOUNTER 2020-05-01 17:12 | Emergency (ER) | payer OTHER ==
--- NOTE | 2020-05-01 17:40 | ED Physician Documentation ---
History of Present Illness - Stated complaint Stated Complaint: FEMALE - Chief complaint Chief Complaint: General - History obtained from History obtained from: Patient - History of Present Illness Timing: Today Pain level max: 0 Pain level now: 0 - Additonal information Additional information: 24-year-old female states that she has had the ParaGard IUD for the past 5-1/2 months. She states that today she could not feel the strings, called the [employer] nurse advice line and was directed to the emergency department for an IUD check. She denies being . She states that she has had some light vaginal spotting. Nothing makes it better or worse. 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 Musculoskeletal: None - Past Surgical History Past Surgical History: No General: Bowel surgery Cardiovascular: Other - Present Medications Home Medications: Ambulatory Orders Medication Instructions Recorded Confirmed Pnv No.95/Ferrous Fum/Folic AC 1 tab PO DAILY 05/01/20 05/01/20 [ Formula Tablet] Sertraline [Zoloft] 25 mg PO DAILY 05/01/20 05/01/20 - Allergies Allergies/Adverse Reactions: Allergies Allergy/AdvReac Type Severity Reaction Status Date / Time No Known Drug Allergies Allergy Verified 05/01/20 17:16 - Social History Does the pt smoke?: No Smoking Status: Never smoker Does the pt drink ETOH?: No Does the pt have substance abuse?: No - Immunizations Immunizations are current?: Yes - POLST Patient has POLST: No PD ED PE NORMAL - Vitals Vital signs reviewed: Yes - General General: Alert and oriented X 3, No acute distress, Well developed/nourished - HEENT HEENT: Moist mucous membranes - Neck Neck: Supple, no meningeal sign - Cardiac Cardiac: RRR - Respiratory Respiratory: No respiratory distress, Clear bilaterally - Abdomen Abdomen: Soft, Non tender, Non distended - Derm Derm: Warm and dry - Extremities Extremities: No edema - Neuro Neuro: Alert and oriented X 3 - Psych Psych: Normal mood, Normal affect Results - Vitals Vitals: Vital Signs - 24 hr 05/01/20 05/01/20 17:17 19:13 Temperature 36.7 C Heart Rate 96 88 Respiratory 15 16 Rate Blood Pressure 144/89 H 134/55 H O2 Saturation 97 97 Oxygen O2 Source Room air - Labs Labs: Laboratory Tests 05/01/20 17:55 Urine Color YELLOW Urine Clarity CLEAR Urine pH 6.5 Ur Specific [place] 1.015 Urine Protein NEGATIVE Urine Glucose (UA) NEGATIVE Urine Ketones NEGATIVE Urine Occult Blood TRACE-INTA Urine Nitrite NEGATIVE Urine Bilirubin NEGATIVE Urine Urobilinogen 0.2 (NORMAL) Ur Leukocyte Esterase NEGATIVE Ur Microscopic Review NOT INDICATED Urine Culture Comments NOT INDICATED Urine HCG, Qual NEGATIVE - Rads (name of study) Pelvic ultrasound Radiology: Prelim report reviewed, EMP read contemporaneously, See rad report (Normal pelvic ultrasound. No IUD visible) PD MEDICAL DECISION MAKING - ED course Complexity details: reviewed results, re-evaluated patient, considered differential, d/w patient ED course: Likely that the IUD has fallen out. She is not having any abdominal pain. If she develops pain or other symptoms, an abdominal x-ray would be considered. Patient is well-appearing, nontoxic. Afebrile. We will have her follow-up with her doctor to replace the IUD. Patient counseled regarding signs and symptoms for which I believe and urgent re-evaluation would be necessary. Patient with good understanding of and agreement to plan and is comfortable going home at this time This document was made in part using voice recognition software. While efforts are made to proofread this document, sound alike and grammatical errors may occur. Departure - Departure Disposition: 01 Home, Self Care Clinical Impression: Malpositioned intrauterine device Qualifiers: Encounter type: initial encounter Qualified Code(s): T83.32XA - Displacement of intrauterine contraceptive device, initial encounter Condition: Good Instructions: Control Options Follow-Up: Jayde Odell, [employer] DESK CLERK [Primary Care Provider] - Within 3 Days Comments: Your IUD appears to have fallen out. Return if you worsen. You need to use a backup form of control. Your doctor can reinsert a new IUD. Discharge Date/Time: 05/01/20 19:13
[2020-05-01 18:14] LABS: BILIRUBIN,URINE NEGATIVE (NEGATIVE); GLUCOSE, URINE (UA) NEGATIVE (NEGATIVE); KETONES,URINE (UA) NEGATIVE (NEGATIVE); LEUKOCYTE ESTERASE, URINE NEGATIVE (NEGATIVE); NITRITE,URINE NEGATIVE (NEGATIVE); OCCULT BLOOD,URINE TRACE-INTA (NEGATIVE); PH,URINE 6.5 PH (5.0-7.5); PROTEIN,URINE NEGATIVE (NEGATIVE); UROBILINOGEN,URINE 0.2 (NORMAL) E.U./dL (NORMAL)
[2020-05-01 18:16] LABS: CLARITY,URINE CLEAR (CLEAR); HCG UR QUAL NEGATIVE
--- NOTE | 2020-05-01 19:09 | Ultrasound Report ---
PROCEDURE: Pelvic w/Transvaginal INDICATIONS: IUD check TECHNIQUE: Real-time scanning was performed of the pelvic organs, with image documentation. Additional endovagi nal scanning was necessary due to incomplete visualization of the adnexal and endometrial structures by transabdominal scanning. COMPARISON: None. FINDINGS: Transabdominal scanning: Limited scanning through the kidneys shows no hydronephrosis. There is an i ncidentally noted 2.1 cm left renal cyst. No pathologic free abdominal or pelvic fluid. Endovaginal scanning: Uterus: Uterus is normal in size at 8.5 x 4.6 x 6.2 cm. The endometrium measures 9 mm in combined t hickness. An intrauterine device is not visualized sonographically. Nabothian cysts are present at th e endocervix. Ovaries: The bilateral ovaries are not visualized. IMPRESSION: 1. An intrauterine device is not visualized. If further characterization is warranted, plain film of the pelvis could be used to evaluate for the presence of the intrauterine device. Normal 2. Limited study. Bilateral ovaries were not visualized. Reviewed by: Daniella Munroe MD on 05/01/2020 7:07 PM PDT Approved by: Daniella Munroe MD on 05/01/2020 7:07 PM PDT Station ID: [id number]
[2020-05-01 19:13] VITALS: BP 134/55
== END 2020-05-01 19:13 | disposition home or self-care (01) ==
LOC: ED 17:12
DX: T83.32XA Displacement of intrauterine contraceptive device, initial encounter (principal); Y84.8 Other medical procedures as the cause of abnormal reaction of the patient, or of later complication, without mention of misadventure at the time of the procedure
CPT/HCPCS: 76830; 76856; 81001; 81003; 81025; 87086; 99282; 99284

== ENCOUNTER 2020-06-26 22:35 | Emergency (ER) | payer OTHER ==
[2020-06-26 22:50] VITALS: BP 128/76
== END 2020-06-27 01:38 | disposition left against medical advice (07) ==
LOC: ED 22:35
DX: Z53.21 Procedure and treatment not carried out due to patient leaving prior to being seen by health care provider (principal)